=== PATIENT | male | born 1970 ===

== ENCOUNTER 2023-09-03 06:57 | Day surgery (SDC) | payer OTHER ==
[~2023-09-03 06:57] MED LIST: IRON PO
[2023-09-03] MEDS ORDERED: PERCOCET 7.5-31 EACH PO (11:49)
[2023-09-03] MEDS ORDERED: COLACE100 MG PO (11:49)
[2023-09-03] MEDS ORDERED: NEURONTIN300 MG PO (11:49)
== END 2023-09-03 22:10 | disposition home or self-care (01) ==
LOC: CIR.AMB 06:57
PROVIDERS: ATTEND Surgery
DX: K62.5 Hemorrhage of anus and rectum (principal); K64.4 Residual hemorrhoidal skin tags; K64.8 Other hemorrhoids; K64.1 Second degree hemorrhoids; K62.89 Other specified diseases of anus and rectum; K64.2 Third degree hemorrhoids; Z20.822 Contact with and (suspected) exposure to COVID-19